=== PATIENT | male | born 2000 | race Caucasian/White ===

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

== ENCOUNTER 2022-12-21 21:58 | Emergency (ER) | payer BC, SELFPAY ==
[2022-12-21 22:02] VITALS: BP 155/85; PULSE 111; RESP 18; TEMP 36.9; O2SAT 100
[2022-12-21 22:42] LABS: Basophils Absolute Auto 0.1 K/mm3 (0.0-0.1); Basophils Percent Auto 0.9 % (0.2-1.2); Eosinophils Absolute Auto 0.2 K/mm3 (0-0.3); Eosinophils Percent Auto 3.3 % (0-4.4); Hematocrit 42.6 % (42.0-52.0); Hemoglobin 15.2 g/dL (14.0-18.0); Immature Granulocyte Absolute 0.01 K/mm3 (0.00-0.031); Immature Granulocyte Percent A 0.2 % (0-0.5); Lymphocytes Percent Auto 34.5 % (18.3-44.2); Mean Corpuscular HGB Conc 35.7 g/dl (32-36); Mean Corpuscular Hemoglobin 34.2 pg (26-34); Mean Corpuscular Volume 95.7 fl (80-100); Mean Platelet Volume 8.6 fl (7.4-10.4); Monocytes Absolute Auto 0.5 K/mm3 (0.1-0.6); Monocytes Percent Auto 8.2 % (2.6-8.5); Neutrophils Absolute Auto 2.9 K/mm3 (1.3-6.7); Neutrophils Percent Auto 52.9 % (45.5-73.1); Platelet Count Result 239 k/mm3 (150-375); Red Blood Count 4.45 M/mm3 (4.6-6.20); Red Cell Distribution Width 10.8 % (11.5-14.5); White Blood Count 5.5 K/mm3 (4.5-10.0)
[2022-12-21 22:45] LABS: Appearance Urine Clear (Clear); Bilirubin Urine Negative (Negative); Blood Urine Trace-intact (Negative); Color Urine Yellow (Yellow); Glucose Urine UA Negative (Negative); Ketones Urine Negative (Negative); Leukocyte Esterase Ur Negative LEU/UL (Negative); Nitrate Urine Negative (Negative); Protein Urine Negative (Negative); Urobilinogen Urine 0.2 mg/dL (<2.0)
[2022-12-21 22:52] LABS: Mucus Urine Rare /lpf; RBC Urine 0-2 /hpf (0-2); WBC Urine 0-3 /hpf
[2022-12-21 22:53] LABS: Alanine Aminotransferase 29 U/L (6-50); Albumin Level 5.2 g/dL (3.5-5.1); Alkaline Phosphatase 65 U/L (38-126); Anion Gap 11 mmol/L (8-16); Aspartate Amino Transferase 42 U/L (17-59); Bilirubin,Total 0.7 mg/dL (0.2-1.3); Blood Urea Nitrogen 11 mg/dL (9-20); Calcium 9.2 mg/dL (8.4-10.2); Carbon Dioxide 26 mmol/L (22-30); Chloride 100 mmol/L (98-107); Estimated CRCL calculation 102 ml/min; Estimated Glomerular Filt Rate > 60; Glucose 103 mg/dL (65-110); Potassium 3.2 mmol/L (3.4-5.0); Sodium 137 mmol/L (137-145)
[2022-12-21 22:54] LABS: Acetaminophen < 10 ug/mL (10-30); Ethanol < 10 mg/dL (<10); Salicylate 3.1 mg/dL (2-20)
[2022-12-21 23:03] LABS: Amphetamine Screen Urine Negative (Negative); Barbiturate Screen Urine Negative (Negative); Benzodiazepines Screen Urine Negative (Negative); Cannabinoid Screen Urine Negative (Negative); Cocaine Screen Urine Negative (Negative); Methadone Screen Urine Negative (Negative); Opiate Screen Urine Negative (Negative); Phencyclidine Screen Urine Negative (Negative)
[2022-12-21 23:12] LABS: Add Urine Microscopic? YES
[2022-12-21 23:22] LABS: SARS-CoV-2 RNA PCR Negative
[2022-12-21 23:30] LABS: Thyroid Stimulating Hormone 0.974 uIU/mL (0.465-4.680)
--- NOTE | 2022-12-21 23:41 | ED.GENADULT ---
HPI - General Adult General Chief complaint: Psychiatric Symptoms <Mikie Ibarra MD - Last Filed: 12/22/22 03:12> Stated complaint: SI thoughts, black feet <Mikie Ibarra MD - Last Filed: 12/22/22 03:12> Time Seen by Provider: 12/21/22 23:02 <Mikie Ibarra MD - Last Filed: 12/22/22 03:12> History of Present Illness HPI narrative: Patient a 22-year-old gentleman who presents emergency department with chief complaint of suicidal ideation. Patient reports that today he has been feeling more stressed and has been having thoughts of harming himself. The patient states that he does not have a specific plan reports that he does have a counselor and reports has had no medication changes recently. Patient reports that also for the last several weeks whenever he dangles his feet off of a chair or puts pressure on his foot that his feet will become dusky. Patient reports no trauma. <Mikie Ibarra MD - Last Filed: 12/22/22 03:12> Related Data Allergies/adverse reactions: Allergies Allergy/AdvReac Type Severity Reaction Status Date / Time No Known Allergies Allergy Verified 12/21/22 21:58 <Mikie Ibarra MD - Last Filed: 12/22/22 03:12> Review of Systems Review of Systems: A 10 system review of systems was completed on the patient and is negative except for what is stated in the HPI. Nursing and ancillary documentation was reviewed. <Mikie Ibarra MD - Last Filed: 12/22/22 03:12> [facility] Family History Family History: Family History Mother Family history of thyroid disease Family history of elevated blood lipids <Mikie Ibarra MD - Last Filed: 12/22/22 03:12> Social History Social History: Social History Smoking status: Never smoker Alcohol intake: never Substance use: never Substance use type: does not use <Mikie Ibarra MD - Last Filed: 12/22/22 03:12> Exam Narrative: GENERAL: Well-appearing, well-nourished, and in no acute distress. HEAD: Normocephalic, atraumatic. EYES: PERRLA and EOMI. ENT: Nares clear, no rhinorrhea or epistaxis. Mucous membranes moist. NECK: Supple. CHEST: Clear to auscultation. No respiratory distress. HEART: Regular rate and rhythm. No murmur heard. Normal peripheral pulses. ABDOMEN: Soft, nontender, nondistended, normal active bowel sounds. EXTREMITIES: Normal range of motion. No edema. Intact dorsalis pedis pulse, good capillary refill, intact sensation SKIN: Warm, dry, no rash. NEURO: No focal deficits. Alert and oriented x3. PSYCH: Normal mood and affect. <Mikie Ibarra MD - Last Filed: 12/22/22 03:12> Course Course Emergency Course: 1328: Accepted to [facility] by Dr. Lugo. Patient stable. <Robert Bradshaw MD - Last Filed: 12/22/22 13:28> Vital Signs Vital signs: Vital Signs Temperature 98.5 F 12/21/22 22:02 Pulse Rate 111 H 12/21/22 22:02 Respiratory Rate 18 12/21/22 22:02 Blood Pressure 155/85 H 12/21/22 22:02 Pulse Oximetry 100 12/21/22 22:02 Oxygen Delivery Room Air 12/21/22 22:02 Temperature 98.8 F 12/22/22 07:49 Pulse Rate 54 L 12/22/22 07:49 Respiratory Rate 16 12/22/22 07:49 Blood Pressure 137/86 12/22/22 07:49 Pulse Oximetry 94 12/22/22 07:49 Oxygen Delivery Room Air 12/21/22 22:02 <Mikie Ibarra MD - Last Filed: 12/22/22 03:12> Vital Signs Temperature 98.5 F 12/21/22 22:02 Pulse Rate 111 H 12/21/22 22:02 Respiratory Rate 18 12/21/22 22:02 Blood Pressure 155/85 H 12/21/22 22:02 Pulse Oximetry 100 12/21/22 22:02 Oxygen Delivery Room Air 12/21/22 22:02 Temperature 98.8 F 12/22/22 07:49 Pulse Rate 54 L 12/22/22 07:49 Respiratory Rate 16 12/22/22 07:49 Blood Pressure 137/86 12/22
--- NOTE | 2022-12-21 23:45 | PC.NURSE ---
call placed to [facility] crisis intervention. will respond within 2 hours t evaluate patient
--- NOTE | 2022-12-22 03:14 | PC.NURSE ---
Estefania from [facility] in [place] called and they do not have any beds available.
[2022-12-22 07:49] VITALS: BP 137/86; PULSE 54; RESP 16; TEMP 37.1; O2SAT 94
--- NOTE | 2022-12-22 11:57 | PCCCNOTE ---
Addendum entered by Samia Holt RN 12/22/22 12:23: Phone call received from Kraig at [facility], patient has been accepted by physician Dr. Lugo. Report to be called after 1pm to [phone]. Once transportation arranged call back to intake to notify of ETA [phone]. Original Note: Spoke with Armin at Crisis to assist with faxing and point of contact as ER is getting busy. He advises for adult care manager to fax to [facility] ([phone]). ER commissioned sales associate Dan provides was notified by crisis to fax to [facility] ([phone]) and [facility] ([phone]). Additional phone call received from Armin at [facility], [facility] is possible to accept based on verbal he has provided, they will need to review the complete chart. Armin requests that chart be fax'd to a different fax at [facility] [phone]. Met with patient and father at bedside in Room 15, introduced self and role and provided update regarding collaboration with crisis and the facilities that will we will be reaching out to and faxing.
--- NOTE | 2022-12-22 13:31 | PCCCNOTE ---
[facility] has accepted transfer will ETA of 45 minutes, update provided to patient and father and called to [facility] at [phone] spoke with Dom and provided update regarding ETA of transportation.
[2022-12-22 14:21] VITALS: BP 126/78; PULSE 101; RESP 16; TEMP 36.9; O2SAT 96
== END 2022-12-22 14:25 ==
PROVIDERS: Emergency Provider Emergency Medicine; PCP Family Medicine
DX: R45.851 Suicidal ideations (principal); Z20.822 Contact with and (suspected) exposure to COVID-19
CPT/HCPCS: 36415; 80053; 80307; 81001; 84443; 85025; 99285; U0003; U0005